=== PATIENT | male | born 1995 | race American Indian/Alaskan Native ===

== ENCOUNTER 2023-10-04 00:38 | Emergency (ER) | payer SELFPAY | END 2023-10-04 01:08 | disposition home or self-care (01) | LOC: DL.ED 00:38 | DX: H92.01 Otalgia, right ear (principal) | CPT/HCPCS: 99282 ==

== ENCOUNTER 2024-03-23 11:14 | Emergency (ER) | payer MEDICAID, BC ==
[2024-03-23 11:41] LABS: BASOPHILS PERCENT AUTO 0.2 % (0.0-1.0); EOSINOPHILS PERCENT AUTO 1.6 % (1.0-3.0); HEMOGLOBIN 13.9 g/dL (14.0-18.0); LYMPHOCYTES PERCENT AUTO 27.3 % (20.5-50.1); MEAN CORPUSCULAR HEMOGLOBIN 29.3 pg (27.0-34.0); MEAN CORPUSCULAR HGB CONC 32.3 g/dL (33.0-35.0); MEAN CORPUSCULAR VOLUME 90.7 fL (80-100); MONOCYTES PERCENT AUTO 8.1 % (2-8); NEUTROPHILS PERCENT AUTO 62.8 % (42.2-75.2); PLATELET COUNT,PLT 211 10^3/uL (150-450); RED BLOOD CELL COUNT 4.74 10^6/uL (4.6-6.2); WHITE BLOOD CELL COUNT,WBC 9.7 10^3/uL (5.0-10.0)
[2024-03-23] MEDS: cefTRIAXone 1 GM, Lidocaine 1% 2.1 ML IM ONE (11:55)
[2024-03-23 12:01] LABS: A/G RATIO 1.1; ANION GAP 17.7 mEq/L (7-13); BILIRUBIN TOTAL 0.6 mg/dL (0.2-1.0); BUN/CREATININE RATIO 9.6 (No establ ref range); CALCIUM 8.6 mg/dL (8.5-10.1); CREATININE 1.04 mg/dL (0.70-1.30); EST CRCL DRUG DOSING (CG) 90.36 mL/min; POTASSIUM,K 3.7 mmol/L (3.5-5.1); PROTEIN TOTAL,TP 7.8 g/dL (6.4-8.2)
== END 2024-03-23 12:24 ==
LOC: DL.ED 11:14
DX: L03.114 Cellulitis of left upper limb (principal)
CPT/HCPCS: 36415; 80053; 85025; 96372; 99283; J0696; J3490

== ENCOUNTER 2024-06-12 14:05 | Emergency (ER) | payer BC, MEDICAID ==
[2024-06-12] MEDS: Acetaminophen 500 MG Tab PO ONE (14:20)
== END 2024-06-12 14:40 | disposition home or self-care (01) ==
LOC: DL.ED 14:05
DX: S99.921A Unspecified injury of right foot, initial encounter (principal); X50.1XXA Overexertion from prolonged static or awkward postures, initial encounter; Y93.89 Activity, other specified
CPT/HCPCS: 73630-RT; 99282; 99283; A9270-GY